=== PATIENT | male | born 1990 | race Caucasian/White ===

== ENCOUNTER 2022-12-25 02:06 | Emergency (ER) | payer OTHER ==
[~2022-12-25] VITALS: Ht 177.8 cm; Wt 72.0 kg
[2022-12-25 02:06] VITALS: TEMP 98.4
[2022-12-25 06:48] VITALS: BP 133/84; PULSE 82; RESP 17; O2SAT 98
== END 2022-12-25 06:49 | disposition home or self-care (01) ==
LOC: EDBD 02:06 → ER 02:10
DX: S29.011A Strain of muscle and tendon of front wall of thorax, initial encounter (principal); S16.1XXA Strain of muscle, fascia and tendon at neck level, initial encounter; R91.1 Solitary pulmonary nodule; M54.6 Pain in thoracic spine; V43.52XA Car driver injured in collision with other type car in traffic accident, initial encounter; Y93.I9 Activity, other involving external motion; Y92.89 Other specified places as the place of occurrence of the external cause; Y99.8 Other external cause status
CPT/HCPCS: 70450; 71250; 72125; 74176